=== PATIENT | male | born 1995 | race Asian ===

== ENCOUNTER 2019-06-04 16:36 | Emergency (ER) | payer OTHER ==
[~2019-06-04] VITALS: Ht 175.3 cm; Wt 78.0 kg
[2019-06-04 16:39] VITALS: BP 155/96; Ht 175.3 cm; Wt 78.0 kg
== END 2019-06-04 18:30 | disposition home or self-care (01) ==
LOC: ED 16:36
DX: S09.90XA Unspecified injury of head, initial encounter (principal); F07.81 Postconcussional syndrome; W22.8XXA Striking against or struck by other objects, initial encounter; Y93.89 Activity, other specified; Y92.89 Other specified places as the place of occurrence of the external cause; Y99.8 Other external cause status

== ENCOUNTER 2019-06-12 09:59 | Emergency (ER) | payer OTHER | END 2019-06-12 10:09 | disposition left against medical advice (07) | LOC: ED 09:59 | DX: Z53.21 Procedure and treatment not carried out due to patient leaving prior to being seen by health care provider (principal) ==